=== PATIENT | female | born 1995 ===

== ENCOUNTER 2022-10-16 14:30 | Outpatient (CLI) | payer MEDICAID ==
[2022-10-17 22:32] LABS: BACTERIAL VAGINOSIS DNA POSITIVE (NEGATIVE); CANDIDA GLABRATA DNA NEGATIVE (NEGATIVE); CANDIDA GROUP DNA POSITIVE (NEGATIVE); CANDIDA KRUSEI DNA NEGATIVE (NEGATIVE); TRICHOMONAS VAGINALIS DNA NEGATIVE (NEGATIVE)
[2022-10-17 23:26] LABS: CHLAMYDIA TRACHOMATIS DNA NEGATIVE (NEGATIVE); NEISSERIA GONORRHOEAE DNA NEGATIVE (NEGATIVE)
== END 2022-10-16 23:59 | disposition home or self-care (01) ==
LOC: LAB.R 14:30
PROVIDERS: ATTEND Nurse Practitioner
DX: Z11.3 Encounter for screening for infections with a predominantly sexual mode of transmission (principal)
CPT/HCPCS: 81514; 87491; 87591; 87661

== ENCOUNTER 2022-12-13 08:00 | Outpatient (CLI) | payer MEDICAID ==
[2022-12-13 23:38] LABS: CHLAMYDIA TRACHOMATIS DNA NEGATIVE (NEGATIVE); NEISSERIA GONORRHOEAE DNA NEGATIVE (NEGATIVE); TRICHOMONAS VAGINALIS DNA NEGATIVE (NEGATIVE)
== END 2022-12-13 23:59 | disposition home or self-care (01) ==
LOC: LAB.WC 08:00
PROVIDERS: ATTEND Nurse Practitioner
DX: Z11.3 Encounter for screening for infections with a predominantly sexual mode of transmission (principal)
CPT/HCPCS: 87491; 87591; 87661

== ENCOUNTER 2023-02-26 08:00 | Outpatient (CLI) | payer MEDICAID ==
[2023-02-26 21:02] LABS: CHLAMYDIA TRACHOMATIS DNA NEGATIVE (NEGATIVE); NEISSERIA GONORRHOEAE DNA NEGATIVE (NEGATIVE); TRICHOMONAS VAGINALIS DNA NEGATIVE (NEGATIVE)
== END 2023-02-26 23:59 | disposition home or self-care (01) ==
LOC: LAB 08:00
PROVIDERS: ATTEND Nurse Practitioner
DX: Z11.3 Encounter for screening for infections with a predominantly sexual mode of transmission (principal)
CPT/HCPCS: 87491; 87591; 87661

== ENCOUNTER 2023-03-16 08:00 | Outpatient (CLI) | payer MEDICAID ==
[2023-03-17 00:06] LABS: BACTERIAL VAGINOSIS DNA NEGATIVE (NEGATIVE); CANDIDA GLABRATA DNA NEGATIVE (NEGATIVE); CANDIDA GROUP DNA POSITIVE (NEGATIVE); CANDIDA KRUSEI DNA NEGATIVE (NEGATIVE); TRICHOMONAS VAGINALIS DNA NEGATIVE (NEGATIVE)
== END 2023-03-16 23:59 | disposition home or self-care (01) ==
LOC: LAB 08:00
PROVIDERS: ATTEND Nurse Practitioner
DX: N89.8 Other specified noninflammatory disorders of vagina (principal)
CPT/HCPCS: 81514

== ENCOUNTER 2023-03-19 12:22 | Outpatient (CLI) | payer MEDICAID ==
[2023-03-19 13:38] LABS: ESTIMATED AVERAGE GLUCOSE 97 mg/dL (70-100)
[2023-03-20 03:09] LABS: HBsAG SCREEN Negative (Negative)
[2023-03-20 05:12] LABS: RPR Non Reactive (Non Reactive)
[2023-03-21 00:08] LABS: HIV SCREEN 4TH GENERATION Non Reactive (Non Reactive)
== END 2023-03-19 12:23 | disposition home or self-care (01) ==
LOC: LAB 12:22
PROVIDERS: ATTEND Nurse Practitioner
DX: B37.9 Candidiasis, unspecified (principal); Z11.3 Encounter for screening for infections with a predominantly sexual mode of transmission
CPT/HCPCS: 36415; 83036; 86592; 86695; 86696; 86803; 87340; 87389

== ENCOUNTER 2023-05-10 16:04 | Outpatient (CLI) | payer MEDICAID ==
--- NOTE | 2023-05-11 10:04 | Ultrasound Report ---
PROCEDURE: Pelvic w/Transvaginal INDICATIONS: NECK MASS, IRREGUALR PERIODS TECHNIQUE: Real-time scanning was performed of the pelvic organs, with image documentation. Additional endovagi nal scanning was necessary due to incomplete visualization of the adnexal and endometrial structures by transabdominal scanning. COMPARISON: None. FINDINGS: Uterus: 6.5 x 3.3 x 4.8 cm. Heterogeneous echotexture. Endometrium is thin measuring 1 to 2 mm. Trace endometrial/cervical canal fluid. Ovaries: Right ovary measures 6 cc. Left ovary measures 11 cc. There is a dominant follicle measuring up to 2 cm. Color flows are seen. Other: No pathologic free fluid. IMPRESSION: Dominant left ovarian follicle. No acute sonographic abnormality. Reviewed by: Ever Veliz MD on 05/11/2023 10:03 AM PDT Approved by: Ever Veliz MD on 05/11/2023 10:03 AM PDT Station ID: [id number]
--- NOTE | 2023-05-11 10:46 | Ultrasound Report ---
PROCEDURE: Head or Neck Soft Tissue INDICATIONS: NECK MASS, IRREGUALR PERIODS TECHNIQUE: Real-time scanning was performed of the neck, with image documentation. COMPARISON: None FINDINGS: Targeted ultrasound of the neck demonstrates a normal-appearing cervical level 2 chain node, not enla rged by size criteria. This measures 1.1 x 1.7 x 0.5 cm. IMPRESSION: Targeted ultrasound of the region of concern demonstrates a normal appearing lymph node, not enlarged by size criteria. Reviewed by: Edgar Lopez on 05/11/2023 10:45 AM PDT Approved by: Edgar Lopez on 05/11/2023 10:45 AM PDT Station ID: [id number]
== END 2023-05-10 16:05 | disposition home or self-care (01) ==
LOC: DI 16:04
PROVIDERS: ATTEND Nurse Practitioner
DX: R22.1 Localized swelling, mass and lump, neck (principal); N92.6 Irregular menstruation, unspecified

== ENCOUNTER 2024-02-19 08:00 | Outpatient (CLI) | payer MEDICAID ==
[2024-02-20 16:49] LABS: CHLAMYDIA TRACHOMATIS DNA NEGATIVE (NEGATIVE); NEISSERIA GONORRHOEAE DNA NEGATIVE (NEGATIVE); TRICHOMONAS VAGINALIS DNA NEGATIVE (NEGATIVE)
== END 2024-02-19 23:59 | disposition home or self-care (01) ==
LOC: LAB.WC 08:00
PROVIDERS: ATTEND Nurse Practitioner
DX: Z11.3 Encounter for screening for infections with a predominantly sexual mode of transmission (principal)
CPT/HCPCS: 87491; 87591; 87661